=== PATIENT | female | born 1975 | race Two or more races ===

== ENCOUNTER 2016-03-05 01:51 | Emergency (ER) | payer MEDICAID ==
[~2016-03-05] VITALS: Ht 165.1 cm; Wt 77.1 kg
[2016-03-05] MEDS ORDERED: ONDANSETRON HCL 4 MG/2 ML VIAL ONE (02:39)
[2016-03-05] MEDS ORDERED: KETOROLAC TROMETH 30 MG/ML 1ML VIAL IV ONE (02:45)
[2016-03-05] MEDS ORDERED: ONDANSETRON HCL 4 MG/2 ML VIAL IV ONE ×2 (02:45→15:00)
[2016-03-05] MEDS ORDERED: SODIUM CHLORIDE 0.9% 1,000 ML IV ONE ×2 (02:45→14:00)
[2016-03-05 02:48] LABS: Basophils # (auto) 0 uL; Basophils % (auto) 0.4 % (0.0-2.0); DEFINITIVE VIEW TRANSMISSION; Eosinophils # (auto) 0.2 uL; Hematocrit 38.6 % (36.0-46.0); Hemoglobin 12.1 g/dL (12.2-16.2); Lymphocytes # (auto) 2.3 uL; Mean Corpuscular Hemoglobin 21.1 pg (28.0-32.0); Mean Corpuscular Hgb Conc. 31.5 g/dL (32.0-36.0); Mean Platelet Volume 8.3 fL (7.4-10.4); Monocytes # (auto) 0.4 uL; Monocytes % (auto) 5.2 % (0.0-12.0); Neutrophils # (auto) 5.4 uL; Neutrophils % (auto) 64.4 % (37.0-80.0); Platelet Count (auto) 349 10^3/uL (140-450); Red Cell Distribution Width 18.3 % (11.6-16.0); White Blood Cell 8.4 10^3/uL (4.4-10.8)
[2016-03-05 03:00] LABS: Albumin 3.7 g/dL (3.4-5.0); BUN/Creatinine Ratio 10.7; Calcium 8.9 mg/dL (8.5-10.1); Magnesium 2.2 mg/dL (1.6-2.6); Potassium 3.8 mmol/L (3.5-5.1)
[2016-03-05 03:02] LABS: Bilirubin, Total 0.9 mg/dL (0.2-1.0); Total Protein 7.7 g/dL (6.4-8.2)
[2016-03-05 04:52] LABS: Urine Bilirubin Negative (Negative); Urine Blood TRACE /uL (Negative); Urine Color Yellow (Yellow); Urine Glucose Normal (Normal); Urine Ketone Negative (Negative); Urine Mucus FEW (None Seen); Urine Nitrite Negative (Negative); Urine RBC <1 /hpf (0 - 4); Urine Squamous Epithelial Cell FEW /hpf (<5); Urine Urobilinogen Normal (Negative); Urine pH 5.5 (5.0-8.0)
[2016-03-05] MEDS ORDERED: MORPHINE SULFATE 4 MG/ML SYRG IV ONE ×2 (05:00→05:45)
[2016-03-05] MEDS ORDERED: IOHEXOL 300 MG/ML 100ML BOTTLE IJ ONE (05:06)
[2016-03-05] MEDS ORDERED: HYDROmorphone HCL 2 MG/ML VL IV ONE ×2 (08:30→15:00)
[2016-03-05] MEDS ORDERED: PROMETHAZINE HCL 25 MG/ML 1ML IV ONE (08:30)
[2016-03-05 17:05] LABS: Vaginal Bacteria Few; Vaginal Clue Cells None Seen; Vaginal Epithelial Cells Few; Vaginal RBC Rare; Vaginal Trichomonas Not Present; Vaginal WBC Rare; Vaginal Yeast None Seen
[2016-03-05] MEDS ORDERED: cefTRIAXone W LIDOCAINE 500 MG IM IM ONE (19:30)
[2016-03-05 20:00] VITALS: BP 126/77
[2016-03-05] MEDS ORDERED: cefTRIAXone SODIUM 250 MG VL ONE (20:02)
[2016-03-05] MEDS ORDERED: LIDOCAINE 1% HCL (LOCAL ANESTH.) INJ 20ML MDV ONE (20:05)
== END 2016-03-05 20:50 | disposition home or self-care (01) ==
LOC: ER 01:52
DX: R10.2 Pelvic and perineal pain (principal); Z90.49 Acquired absence of other specified parts of digestive tract; Z90.710 Acquired absence of both cervix and uterus
CPT/HCPCS: 36415; 74177; 76856; 80053; 81001; 82150; 83690; 83735; 85025; 87210; 87491; 87591; 96361; 96374; 96375; 96376; 99285; J0696; J1170; J1885; J2001; J2270; J2405; J2550; J7030; Q9967

== ENCOUNTER 2017-01-26 20:09 | Emergency (ER) | payer MEDICAID ==
[~2017-01-26] VITALS: Ht 165.1 cm; Wt 81.6 kg
[2017-01-27 00:06] LABS: Basophils # (auto) 0 uL; Eosinophils # (auto) 0.2 uL; Lymphocytes # (auto) 2.9 uL
[2017-01-27 00:08] LABS: Basophils % (auto) 0.5 % (0.0-2.0); Eosinophils % (auto) 3.1 % (0.0-7.0); Hematocrit 39.4 % (36.0-46.0); Lymphocytes % (auto) 37.9 % (10.0-50.0); Mean Corpuscular Hemoglobin 24.3 pg (28.0-32.0); Mean Corpuscular Volume 73.5 fL (80.0-100.0); Mean Platelet Volume 7.8 fL (6.9-10.8); Monocytes # (auto) 0.4 uL; Monocytes % (auto) 5.5 % (0.0-12.0); Nucleated Red Blood Cells % 0.1 %; Platelet Count (auto) 245 10^3/uL (140-450); Red Cell Distribution Width 15.5 % (11.8-14.3); White Blood Cell 7.6 10^3/uL (4.4-10.8)
[2017-01-27 00:20] LABS: BUN/Creatinine Ratio 15.1; Bilirubin, Total 1.4 mg/dL (0.2-1.0); Calcium 8.7 mg/dL (8.5-10.1); Potassium 3.7 mmol/L (3.5-5.1); Total Protein 7.8 g/dL (6.4-8.2)
[2017-01-27 00:22] LABS: INR 0.93 (0.9-1.15); Partial Thromboplastin Time 25.4 sec (22.64-33.71); Prothrombin Time 10.1 sec (9.37-12.3)
[2017-01-27 02:47] LABS: Urine RBC None Seen /hpf (0 - 4)
[2017-01-27] MEDS ORDERED: SODIUM CHLORIDE 0.9% 1,000 ML IV ONE (03:15)
[2017-01-27] MEDS ORDERED: MORPHINE SULF INJ 2 MG/ML SYRINGE 1ML IV ONE ×2 (03:15→05:30)
[2017-01-27] MEDS ORDERED: ONDANSETRON HCL 4 MG/2 ML VIAL IV ONE ×2 (03:15→05:30)
[2017-01-27 03:26] LABS: Urine Bilirubin Negative (Negative); Urine Blood Negative /uL (Negative); Urine Color Colorless (Yellow); Urine Glucose Normal (Normal); Urine Ketone Negative (Negative); Urine Nitrite Negative (Negative); Urine Squamous Epithelial Cell FEW /hpf (<5); Urine Urobilinogen Normal (Negative)
[2017-01-27 06:14] VITALS: BP 123/72
== END 2017-01-27 06:21 | disposition home or self-care (01) ==
LOC: ER 20:09
DX: K58.9 Irritable bowel syndrome, unspecified (principal); Z90.49 Acquired absence of other specified parts of digestive tract; Z90.710 Acquired absence of both cervix and uterus
CPT/HCPCS: 36415; 71020; 74176; 80053; 81001; 83690; 84484; 85025; 85610; 85730; 93005; 94761; 96361; 96374; 96375; 96376; 99285; J2270; J2405